=== PATIENT | female | born 2000 | race Caucasian/White ===

== ENCOUNTER 2022-03-30 19:51 | Emergency (ER) | payer BC, MEDICAID ==
[~2022-03-30] VITALS: Ht 152.4 cm; Wt 81.6 kg
[2022-03-30 20:00] VITALS: BP_SYST 100
--- NOTE | 2022-03-30 20:01 | NUR ---
Patient triaged and placed in waiting room. VSS and patient appears in no acute distress at this time. Accompanied by SELF, awaiting available bed, and MD notified of need for MSE.
--- NOTE | 2022-03-30 20:12 | NUR ---
PT STATES SWELLING TO JUST BEHIND LEFT EAR, PT STATES HER LYMPH NODES SWELL UP RIGHT BEFORE SHE GET SICK. PT STATES SHE FEELS GOOD RIGHT NOW.
--- NOTE | 2022-03-30 20:55 | NUR ---
DR RAM OUT TO TRIAGE ROOM TO EVALUATE PT.
[2022-03-30] MEDS ORDERED: FLUT16SP16 NS (21:25)
[2022-03-30] MEDS ORDERED: ACET1TAB93 PO (21:25)
[2022-03-30] MEDS ORDERED: FIORICET PO (21:25)
[2022-03-30] MEDS ORDERED: ONDA-8 TL (21:27)
--- NOTE | 2022-03-30 21:47 | NUR ---
Patient given written and verbal discharge instructions and verbalizes understanding. ER MD discussed with patient the results and treatment provided. Patient in stable condition. ID arm band removed. Rx of FIORICET, FLONASE, ZOFRAN, TYLENOL #3 given. Patient educated on pain management and to follow up with PMD. Pain Scale 0/10. Opportunity for questions provided and answered. Medication side effect fact sheet provided.
== END 2022-03-30 21:47 | disposition home or self-care (01) ==
LOC: SED 19:51
DX: R59.1 Generalized enlarged lymph nodes (principal); R51.9 Headache, unspecified; R11.0 Nausea; J45.909 Unspecified asthma, uncomplicated; Z88.0 Allergy status to penicillin; Z88.1 Allergy status to other antibiotic agents; Z79.899 Other long term (current) drug therapy
CPT/HCPCS: 99283

== ENCOUNTER 2022-10-16 14:37 | Emergency (ER) | payer BC ==
[~2022-10-16] VITALS: Ht 152.4 cm; Wt 72.6 kg
[~2022-10-16 14:37] MED LIST: FIORICET PO; FLUT16SP16 NS; ONDA-8 TL
[2022-10-16 15:19] VITALS: BP_SYST 121
--- NOTE | 2022-10-16 17:20 | NUR ---
PATIENT CALLED FOR BED PLACEMENT NO ANSWER
--- NOTE | 2022-10-16 17:31 | NUR ---
CALLED FOR BED PLACEMENT NO ANSWER
--- NOTE | 2022-10-16 17:41 | NUR ---
CALLED FOR BED PLACEMENT NO ANSWER PATIENT LEFT WITHOUT BEING SEEN
== END 2022-10-16 17:41 | disposition left against medical advice (07) ==
LOC: SED 14:37
DX: H57.89 Other specified disorders of eye and adnexa (principal); M25.519 Pain in unspecified shoulder; Z53.21 Procedure and treatment not carried out due to patient leaving prior to being seen by health care provider
CPT/HCPCS: 99281

== ENCOUNTER 2022-11-28 12:05 | Emergency (ER) | payer BC ==
[~2022-11-28] VITALS: Ht 152.4 cm; Wt 72.6 kg
[2022-11-28 12:15] VITALS: BP_SYST 103; PULSE 93; RESP 18; TEMP 98.3; O2SAT 99
[2022-11-28 13:41] VITALS: BP_SYST 103; PULSE 93; RESP 18; TEMP 98.3; O2SAT 99
[2022-11-28] MEDS ORDERED: NAPR-688 PO (13:49)
[2022-11-28] MEDS ORDERED: CIPR5DRO OP (13:49)
== END 2022-11-28 13:53 | disposition home or self-care (01) ==
LOC: SED 12:05
DX: M67.813 Other specified disorders of tendon, right shoulder (principal); M25.511 Pain in right shoulder; H10.89 Other conjunctivitis; J45.909 Unspecified asthma, uncomplicated; Z88.0 Allergy status to penicillin; Z88.1 Allergy status to other antibiotic agents; Z79.899 Other long term (current) drug therapy
CPT/HCPCS: 73030; 99283

== ENCOUNTER 2023-09-20 15:29 | Emergency (ER) | payer BC ==
[~2023-09-20] VITALS: Ht 162.6 cm; Wt 54.4 kg
[~2023-09-20 15:29] MED LIST changes: +CIPR5DRO OP; +NAPR-688 PO
[2023-09-20 15:33] VITALS: BP_SYST 113; PULSE 95; RESP 18; TEMP 98.3; O2SAT 99
[2023-09-20] MEDS: RACEPINEPHRINE HCL 0.5 ML VIAL.NEB INH ONE (15:53)
[2023-09-20] MEDS: FAMOTIDINE PF 20 MG/2 ML VIAL IVP ONE (16:08)
[2023-09-20] MEDS: methylPREDNISolone SOD SUCC/PF 62.5 MG/ML VIAL IVP ONE (16:09)
[2023-09-20] MEDS ORDERED: FAMO40TA71 PO (17:29)
[2023-09-20] MEDS ORDERED: FEXO180T94 PO (17:29)
[2023-09-20] MEDS ORDERED: METH4TAB3 PO (17:29)
[2023-09-20] MEDS ORDERED: EPIN0.3P3 IM (17:35)
[2023-09-20 18:15] VITALS: BP_SYST 96; PULSE 80; RESP 18; TEMP 97.7; O2SAT 99
== END 2023-09-20 18:20 | disposition home or self-care (01) ==
LOC: SED 15:29
DX: T78.40XA Allergy, unspecified, initial encounter (principal); J45.909 Unspecified asthma, uncomplicated; Z88.0 Allergy status to penicillin; Z88.8 Allergy status to other drugs, medicaments and biological substances; X58.XXXA Exposure to other specified factors, initial encounter
CPT/HCPCS: 99284; 96374; 96375; 94640; J3490; J2930